=== PATIENT | female | born 2000 | race Caucasian/White ===

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

== ENCOUNTER 2024-04-15 16:11 | Emergency (ER) | payer SELFPAY ==
[2024-04-15 16:12] VITALS: BP 125/85; PULSE 90; RESP 18; TEMP 36.6; O2SAT 97; BMI 27.6
[2024-04-15 17:12] LABS: Absolute Lymphocyte Count 3.69 X10^3/uL (0.83-4.51); Basophil# 0.03 X10^3/uL; Basophil% 0.3 % (0-1); Eosinophil# 0.12 X10^3/uL; Hemoglobin 10.5 g/dL (12.0-15.0); Lymphocyte # 3.69 X10^3/ul (0.83-4.51); Lymphocyte % 31.8 % (19-41); Mean Corp Hgb Conc 30.9 g/dL (32-36); Mean Corpuscular Hgb 22.1 pg (27.0-32.0); Mean Corpuscular Volume 71.4 fL (81-99); Mean Platelet Vol. 8.3 fl (6.2-12.0); Monocyte# 0.78 X10^3/uL; Monocyte% 6.7 % (0-10); NRBC Flagged by Analyzer 0 % (0-5); Neutrophil # 6.95 X10^3/uL (2.7-7.7); Neutrophil % 59.8 % (47-70); Platelet Count 381 K/mm3 (150-450); RBC Distribution Width CV 17.9 % (11.6-14.6); RBC Distribution Width SD 45.4 fl (35.1-43.9); Red Blood Count 4.76 M/mm3 (4.2-5.4); White Blood Count 11.6 K/mm3 (4.4-11.0)
[2024-04-15 17:26] LABS: Internal QC Validated? YES +Cl - CLEAR BKGD
[2024-04-15 17:27] LABS: Pregnancy, Serum, hCG Quali. NEGATIVE Negative
[2024-04-15 17:28] LABS: ALB/GLOB Ratio 1.1 RATIO (0.9-2.4); AST(SGOT) 14 U/L (15-37); Alanine Aminotransfer ALT/SGPT 22 U/L (13-56); Alkaline Phosphatase 49 U/L (45-117); Anion Gap 6 (5-15); BUN 8 mg/dL (7-18); BUN/Creat Ratio 10.8 RATIO (10-20); Calcium,Total 9.5 mg/dL (8.5-10.1); Chloride 108 mmol/L (98-107); Creatinine, Serum 0.74 mg/dL (0.55-1.02); EST Glomerular Filtration Rate 105 mL/min (>60); Est Glom Filt Rate - Afr Amer 127 mL/min (>60); Estimated Creatinine Clearance 126.45 ml/min; Globulin 3.8 g/dL (2.2-4.2); Glucose 92 mg/dL (74-106); Potassium 3.6 mmol/L (3.5-5.1); Protein, Total 7.8 g/dL (6.4-8.2); Sodium Level 139 mmol/L (136-145)
--- NOTE | 2024-04-15 17:41 | US_ITS ---
STUDY: ULTRASOUND TRANSVAGINAL CLINICAL: Female, 23 years old. pain TECHNIQUE: Transvaginal COMPARISON: None. FINDINGS: Normal uterine size measuring 7.7 x 4.6 x 3.5 cm in maximal craniocaudal dimension. There are no myometrial masses. Normal endometrial thickness measuring 14 mm and is hyperechoic. There are no endometrial masses, and there is no fluid in the endometrial cavity. Normal uterine cervix. Normal right ovary, measuring 4.3 x 2.7 x 2.4 cm. There are multiple follicles without a dominant cyst. Normal left ovary, measuring 6 x 4.6 x 3.3 cm. Complex cyst measuring 3.1 x 3.6 x 2.3 cm There is mild free fluid in the pelvis possibly due to recent ovulation.. US/Transvaginal Non- IMPRESSION: Right ovarian cyst with internal echoes possibly representing intracystic hemorrhage. Recommend clinical correlation and follow-up studies to assess for interval change Electronically Signed: Addison Sheehan MD at 19:25 EDT ,
--- NOTE | 2024-04-15 17:45 | EDS_ITS ---
HPI History of Present Illness Chief Complaint: Abd Pain Informant: patient and parent Narrative Narrative: Here for evaluation lower pelvic pains sudden severe yesterday 6:30 PM last 3 hours. Let go this morning on and off pain. No urinary symptoms. No GI symp toms. No history of similar. No abdominal surgeries. Mother states family history of ovarian cyst. She denies any vaginal bleeding or abnormal discharge. Currently symptoms subsided. Denies any allergies. She is due for her menstrual period. Patient seen at urgent care, evaluated no testing, sent to the ED. Prior similar symptoms: No PFSH PFSH Home Medications ?Medication ?Instructions ?Recorded ?Last Taken ?Type No Known/Unobtainable [No Known 05/20/13 Unknown History Home Medications] Allergy/AdvReac Type Severity Reaction Status Date / Time No Known Allergies Allergy Verified 04/15/24 16:12 Social History Smoking Status: Never smoker ROS ROS ED Constitutional Constitutional ED: Denies chills, fever(s) or sweats Eyes Eyes: Denies change in vision ENT ENT ED: Denies dysphagia or sore throat Cardiovascular Cardiovascular: Denies chest pain, leg edema, palpitations or racing heartbeat Respiratory/Chest Respiratory/Chest: Denies cough, dyspnea or dyspnea on exertion Gastrointestinal Gastrointestinal: Reports abdominal pain; Denies diarrhea, nausea or vomiting Genitourinary Genitourinary ED: Denies dysuria, hematuria or urinary frequency Musculoskeletal Musculoskeletal: Denies back pain, extremity pain or neck pain Integumentary Denies rash or wounds Neurologic Neurologic: Denies headache(s), paresthesias or weakness EXAM Physical Exam Const Vital Signs: 04/15/24 16:12 04/15/24 18:11 04/15/24 20:00 Temperature 97.9 F Temperature Source Temporal Pulse Rate 90 64 82 Respiratory Rate 18 16 12 Blood Pressure 125/85 H 124/78 H 115/80 Blood Pressure Mean 98 93 91 Pulse Ox 97 98 99 Oxygen Delivery Method Room Air Room Air Room Air 04/15/24 20:09 Temperature 97.9 F Temperature Source Pulse Rate 82 Respiratory Rate 12 Blood Pressure 115/80 Blood Pressure Mean 91 Pulse Ox 99 Oxygen Delivery Method Positive well nourished and well developed General Appearance ED: well developed and NAD HEENT Reports moist mucous membranes normocephalic and atraumatic Eyes EOMs intact bilaterally and conjunctivae normal General Eye ED: Yes normal appearance of both eyes Neck no lymphadenopathy and supple General: Negative for tenderness Chest Wall Chest: Negative for tenderness Resp normal respiratory effort and normal air movement Effort and Inspection: symmetric chest movement; Negative for respiratory distress Cardio regular rate, regular rhythm and no murmurs Peripheral Pulses: pulses 2+ throughout GI normal to inspection, nondistended, normoactive bowel sounds GI Narrative: Tender lower pelvic bilaterally there is no guarding or rebound. Negative Sparks's or McBurney's tenderness. Palpation: Negative for guarding or rebound tenderness present Back/Spine no CVA tenderness and no thoracic nor lumbar tenderness Extremity normal to inspection General Extremety ED: Negative for edema or tenderness General Extremity: Negative for edema Neuro oriented x3 and no sensory deficits noted Sensorium / Orientation: awake and alert Skin no rashes or lesions noted and no wounds MDM MDM MDM Narrative Medical decision making narrative: Interventions / MDM: Differential diagnosis: Ovarian cyst, ruptured cyst Diagnosis considered but do not suspect: No clinical appendicitis, no clinical torsion of ovary My EKG interpretation: N/A Imaging independently reviewed and interpreted by myself: Pelvic ultrasound: Right ovarian cyst possible intracystic hemorrhage per radiology. There is mild free fluid. External documents reviewed: Hemoglobin 9.9 in 2019 Test considered but not ordered:N/A ED course: Patient nontoxic vital stable. Sudden pain that resolved with family history of ovarian cysts. Declines any pain medications currently. Labs were drawn along with urine. Pelvic ultrasound. 2000: Hemoglobin 10.5, stable from previous. White count 11.6. Creatinine 0.74. hCG negative. Urine negative. Ultrasound follicles with potential intracystic hemorrhage per radiology. Mild pelvic free fluid. Discussed likely apparent cyst or rupture with her pain yesterday she is comfort this time. Vitals are stable. Hemoglobin stable. 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 Will give her follow-up with gynecology. She has Motrin at home to use. Return precautions. Re-evaluation: stable Disposition discussed with patient/family/significant other: Patient and family Case discussed with consulting clinician: N/A This note was generated with [employer] dictation software. It may contain incorrect words, spelling, and punctuation that were not noted in checking the note before signing. Lab Data Attestation: I reviewed the patient's lab results. Labs: Laboratory Results - last 24 hr 04/15/24 04/15/24 17:00 19:03 WBC 11.6 H RBC 4.76 Hgb 10.5 L Hct 34.0 L MCV 71.4 L MCH 22.1 L MCHC 30.9 L RDW Std Deviation 45.4 H RDW Coeff of Kacey 17.9 H Plt Count 381 MPV 8.3 Immature Gran % (Auto) 0.400 Neut % (Auto) 59.8 Lymph % (Auto) 31.8 [place] % (Auto) 6.7 Eos % (Auto) 1.0 Baso % (Auto) 0.3 Absolute Neuts (auto) 7.0 Absolute Lymphs (auto) 3.69 Nucleated RBC % 0 Sodium 139 Potassium 3.6 Chloride 108 H Carbon Dioxide 25.0 Anion Gap 6 BUN 8 Creatinine 0.74 Estim Creat Clear Calc 126.45 Est GFR (MDRD) Af Amer 127 Est GFR (MDRD) Non-Af 105 BUN/Creatinine Ratio 10.8 Glucose 92 Calcium 9.5 Total Bilirubin 0.40 AST 14 L ALT 22 Alkaline Phosphatase 49 Total Protein 7.8 Albumin 4.0 Globulin 3.8 Albumin/Globulin Ratio 1.1 Serum , Qual NEGATIVE Urine Color Yellow Urine Clarity Clear Urine pH 6.0 Ur Specific [place] 1.020 Urine Protein Negative Urine Glucose (UA) Normal Urine Ketones 5 H Urine Occult Blood 10 H Urine Nitrite Negative Urine Bilirubin Negative Urine Urobilinogen Normal Ur Leukocyte Esterase Negative Urine RBC 0-5 SEEN Urine WBC 0 SEEN Ur Squamous Epith Cells 0-5 SEEN Urine Bacteria 1+ Urine Mucus 0 SEEN Radiography Diagnostic Testing: Clinical Impression(s) from Imaging Studies Transvaginal US 04/15/24 17:41 IMPRESSION: Right ovarian cyst with internal echoes possibly representing intracystic hemorrhage. Recommend clinical correlation and follow-up studies to assess for interval change Electronically Signed: Addison Sheehan MD at 19:25 EDT , Discharge Plan Triage Chief Complaint: Abd Pain ED Provider: Hiren Moss Dx/Rx/DC Orders Clinical Impression: Ovarian cyst, Ovarian cyst rupture, Pelvic pain Instructions: Ovarian Cysts, Treating a Ruptured Ovarian Cyst Prescriptions: No Action No Known Home Medications Stand Alone Forms: ED Work / School Excuse Primary Care Provider: Care Physician,No Primary Referrals: Tangela Patiño MD [Med Staff - Active Staff] - 1 Week Care Physician,No Primary [Primary Care Provider] - Activity Restrictions/Additional Instructions: Hemoglobin 10.5. Last hemoglobin the system 9.9 in 2019. This is stable. Ultrasound with ovarian cyst 1 in the right side, possible intracystic hem orrhage. Your vitals are stable. Use Motrin 600 mg every 6 hours as needed. Follow-up with gynecology. If symptoms worsen not controlled with meds, return to ED for reevaluation. Print Language: Nigerian Disposition Disposition: Home, Self Care Discharge Date/Time: 04/15/24 20:12
[2024-04-15 18:11] VITALS: BP 124/78; PULSE 64; RESP 16; O2SAT 98
[2024-04-15 19:10] LABS: Mucous, Urine 0 SEEN /hpf (<or=2+); White Blood Cells 0 SEEN /hpf (0-5)
[2024-04-15 19:13] LABS: Color, Urine Yellow (Yellow); Glucose, Dipstick Normal (Normal); Ketone-Dipstick 5 mg/dl (Negative); Leukocyte Esterase-Dipstick Negative /ul (Negative); Nitrite-Dipstick Negative (Negative); Occult Blood-Urine 10 /ul (Negative); Protein-Dipstick Negative (Negative); Urine Bilirubin Dipstick Negative (Negative); Urine Clarity Clear (Clear); Urine Urobilinogen Normal (Normal)
[2024-04-15 19:38] LABS: Bacteria 1+ /hpf (None Seen); Red Blood Cells-Urine 0-5 SEEN /hpf (0-5); Squamous Epithelial Cells - UA 0-5 SEEN /hpf (5-10)
[2024-04-15 20:00] VITALS: BP 115/80; PULSE 82; RESP 12; O2SAT 99
[2024-04-15 20:09] VITALS: BP 115/80; PULSE 82; RESP 12; TEMP 36.6; O2SAT 99
== END 2024-04-15 20:12 | disposition home or self-care (01) ==
PROVIDERS: Emergency Provider Emergency Medicine; Visit Provider Emergency Medicine
DX: N83.201 Unspecified ovarian cyst, right side (principal); R10.2 Pelvic and perineal pain
CPT/HCPCS: 76830; 80053; 81001; 84703; 85025; 93976; 99283; A4216